=== PATIENT | female | born 1975 | race Caucasian/White ===

== ENCOUNTER 2020-08-16 04:25 | Day surgery (SDC) | payer OTHER ==
[2020-08-15 09:37] VITALS: BMI 26.0
[2020-08-16] MEDS ORDERED: MIDAZOLAM HCL 2 MG/2 ML SINGLE DOSE VIAL ONE (12:33)
[2020-08-16] MEDS ORDERED: PROPOFOL 20 ML ONE ×2 (12:33→14:17)
[2020-08-16] MEDS ORDERED: LACTATED RINGERS SOLUTION 1,000 ML IV SCH (14:15)
[2020-08-16] MEDS ORDERED: ONDANSETRON 4 MG/2 ML VIAL IVPUSH PRN (14:15)
[2020-08-16] MEDS ORDERED: oxyCODONE HCL 5 MG TABLET PO PRN (14:15)
[2020-08-16 16:49] VITALS: PULSE 90
[2020-08-16 17:59] VITALS: BP 113/70
[2020-08-16 18:04] VITALS: TEMP 98
== END 2020-08-16 18:04 | disposition home or self-care (01) ==
LOC: JASU-SURG 04:25
PROVIDERS: ATTEND Obstetrics & Gynecology
PROC: 0UJD8ZZ Inspection of Uterus and Cervix, Via Natural or Artificial Opening Endoscopic (ICD-10-PCS; 2020-08-16)
PROC: 0UB97ZX Excision of Uterus, Via Natural or Artificial Opening, Diagnostic (ICD-10-PCS; principal; 2020-08-16 13:30)
PROC: 0UDB7ZX Extraction of Endometrium, Via Natural or Artificial Opening, Diagnostic (ICD-10-PCS; 2020-08-16 13:30)
DX: N92.0 Excessive and frequent menstruation with regular cycle (principal); N84.0 Polyp of corpus uteri
CPT/HCPCS: 84703; 88305-TC; 94760